=== PATIENT | female | born 1950 | race Caucasian/White ===

== ENCOUNTER 2019-10-21 06:50 | Day surgery (SDC) | payer MEDICARE, OTHER ==
[~2019-10-21] VITALS: Ht 160 cm; Wt 72.6 kg
[~2019-10-21 06:50] MED LIST: FOSAMAX70 MG PO; LEVOTHYROXINE25 MCG PO; LIPITOR20 MG PO; METOPROLOL SUC200 MG PO; METOPROLOL TART50 MG PO; OMEPRAZOLE20 MG PO; ZOLOFT100 MG PO
[2019-10-21] MEDS ORDERED: HYDROCODON-ACE1 EA10 PO (08:50)
--- NOTE | 2019-10-21 09:14 | NUR ---
10/21/19 0914 Hermelinda Hardin 0853- PT ARRIVES TO PACU EASILY AROUSABLE TO VOICE. INSTANTLY FALLS TO SLEEP WHEN NOT BEING TALKED TO. RESP EVEN AND UNLABORED. OXYGEN SAT HIGH 90'S TO 100% ON 6L VIA MASK. 0857- PT NEEDING REMINDERS TO COUGH AND DEEP BREATHE. PT IS ABLE TO FOLLOW THESE COMMANDS. 0908- OXYGEN TITRATED OFF. 0912- PT IS MORE AROUSABLE. PT SAT UP IN BED AND GIVEN ICE WATER TO DRINK PER HER REQUEST. TOLERATING WELL. PT RIGHT HAND HAS AN ICE PACK TO IT.
--- NOTE | 2019-10-21 10:30 | OR ---
[facility] [address] [place], [place] [address] Signed DATE OF OPERATION: 10/21/2019 SURGEON: Berto Rand MD PREOPERATIVE DIAGNOSIS: Right ring trigger finger. POSTOPERATIVE DIAGNOSIS: Right ring trigger finger. PROCEDURE PERFORMED: Right ring trigger finger release. HAND SALTER: None. ANESTHESIA: [place] block. TOURNIQUET TIME: 20 minutes. BRIEF HISTORY: Rocio is a 68-year-old female with locking in her ring finger. It was uncomfortable. Risks and benefits of operative treatment were discussed with her versus injection. She elected to proceed with surgery. Once consent was obtained, she was taken to the operating room. After adequate anesthesia, she was placed on the operating room table. All downside pressure points were well padded. The right arm was prepped and draped in a standard sterile fashion. A 1 cm incision was made in the distal palmar crease, carried through skin and subcutaneous tissue. There were multiple fibrotic nodules consistent with early Dupuytren's in the region. These were transected to allow visualization of the tendon sheath. The sheath was then dissected free of overlying soft tissue. The A1 oniel was identified and under loupe magnification it was transected using the tenotomy scissors. The tendon was fully released. The patient was asked to move her hand. She was able to move her finger, full flexion and full extension with no locking or triggering. The wound was copiously irrigated and closed with 3-0 nylon. It was injected with 2 mL of 0.25% plain Marcaine and dressed with bacitracin, Adaptic, 4 x 8s, and gauze. She tolerated the procedure well. All sponge, needle, and instrument counts were correct. Electronically Signed By: BERTO RAND MD 10/21/19 1030 PATIENT NAME: ROCIO LUIS OPERATIVE REPORT DATE OF : 48 REPORT #: [id number] PHYSICIAN: BERTO RAND MD PCP: MARIJA MORENO MD REPORT IS CONFIDENTIAL AND NOT TO BE RELEASED WITHOUT AUTHORIZATION [address] [address] Signed Berto Rand MD BA/MALLYL /[id number] Copies: ~ Electronically Signed By: BERTO RAND MD 10/21/19 1030 PATIENT NAME: ROCIO LUIS OPERATIVE REPORT DATE OF : 48 REPORT #: [id number] PHYSICIAN: BERTO RAND MD PCP: MORENO, MARIJA YOLAND MD REPORT IS CONFIDENTIAL AND NOT TO BE RELEASED WITHOUT AUTHORIZATION
== END 2019-10-21 09:50 | disposition home or self-care (01) ==
LOC: OPS 06:50 → DS 06:50 → OPS 08:00
PROVIDERS: Specialist
PROC: 0LN70ZZ Release Right Hand Tendon, Open Approach (ICD-10-PCS; principal; 2019-10-21 08:00)
DX: M65.341 Trigger finger, right ring finger (principal); Z79.899 Other long term (current) drug therapy
CPT/HCPCS: 01810; J0690; J1100; J1885; J2250; J2405; J2704; J2765; J3010; J7121

== ENCOUNTER 2022-09-30 07:50 | Day surgery (SDC) | payer MEDICARE, OTHER ==
[~2022-09-30] VITALS: Ht 160 cm; Wt 77.8 kg
[~2022-09-30 07:50] MED LIST changes: +CALCIUM + D SO1 EACH PO; +CANDICIDAL CAP1 EACH PO; +HYDROCODON-ACE1 EA10 PO; +LEVOTHYROXINE25 MC1 PO; +PEPCID AC10 MG
--- NOTE | 2022-09-30 09:34 | NUR ---
09/30/22 0934 Digna Nieto 0998 PATIENT ARRIVES TO PACU AWAKE BUT DROWSY. DENIES PAIN OR NAUSEA. ANSWERS QUESTIONS APPROPRIATELY. SLEEP ING WHEN NOT STIMULATED. RESP EVEN AND UNLABORED, OXYGEN TURNED OFF ON ARRIVAL, ROOM AIR SATS >93%. PASSING GAS.
--- NOTE | 2022-10-01 07:02 | OR ---
[facility] [address] [place], [place] [address] Signed DATE OF OPERATION: 09/30/2022 SURGEON: Sharmila Bhagat MD PREOPERATIVE DIAGNOSES: 1. Sister with colon cancer age 53. 2. Brother with colon polyps late 60s. POSTOPERATIVE DIAGNOSES: 1. 4 mm polyp at 25 cm (sigmoid colon). 2. 3 mm polyp at 3 cm. 3. Minimal sigmoid diverticulosis. 4. Tortuous sigmoid colon. PROCEDURE: Colonoscopy with hot biopsy. ESTIMATED BLOOD LOSS: None. INDICATIONS: Rocio is a 71-year-old female, asked to see me for a followup colonoscopy. She has no lower GI complaints. We know her sister developed colon cancer at age 53. She from her colon cancer a few years later. Her brother also had colonic polyps removed in his late 60s. We know her father had of pancreatic cancer. Katheryn underwent a colonoscopy in 1998 at the age of 48. She cannot recall which physician helped her in that regard. It was done in [place], [place]. She recalls it was negative. I helped her with a colonoscopy in 2008 at the age of 58. This was negative. She did well with Versed and fentanyl. She came back in 2015 at the age of 65. Again, it was negative. She did well with Versed and fentanyl. We always asked her to return in 5 years. She returns now and told me by her brother having colonic polyps. In the office, I gave her a brochure on colonoscopy. She recalls the nature of the test. There is risk including, but not limited to gas bloating, crampy abdominal pain, bleeding, perforation requiring surgery, and missed diagnosis. We had reviewed the written instructions for the bowel prep line by line. She told me our bowel prep is the most gentle and she has been very happy with that prep. I reminded her of the need for IV conscious sedation. She said her daughter would take her home afterwards. PROCEDURE NOTE: Rocio was taken into our endoscopy suite and placed in the left lateral decubitus Electronically Signed By: SHARMILA BHAGAT MD 10/01/22 0702 PATIENT NAME: ROCIO LUIS OPERATIVE REPORT DATE OF : 48 REPORT #: [id number] PHYSICIAN: SHARMILA BHAGAT MD PCP: JORJE GARDUNO MD REPORT IS CONFIDENTIAL AND NOT TO BE RELEASED WITHOUT AUTHORIZATION [facility] [address] [place], [place] [address] Signed position. She was given 7 mg of Versed and 100 mcg of fentanyl to cover the case. A digital rectal exam was performed and this was unremarkable. There were no external hemorrhoids. She had good sphincter tone. There were no masses. The adult colonoscope was introduced and advanced up in the sigmoid colon. It took a few extra minutes with abdominal compression and extra sedation in order to advance the scope through the sigmoid colon. After that, we traveled up into the right colon. I continued to drag a little bit in the sigmoid colon. With a little extra back and forth with the camera and some sedation, we got into the cecum itself. We could easily see the appendiceal orifice and the ileocecal valve. Her prep was quite excellent. The scope was then slowly withdrawn. The above-mentioned polyps were easily removed with the help of hot biopsy forceps. We had seen just a couple of diverticula, so we went through the sigmoid colon. The scope had been retroflexed and we did not see any additional pathology above the anal canal. After this, the gas was suctioned out and the colonoscope removed. Rocio tolerated the procedure quite well. RECOMMENDATIONS: I will see Rocio back in my office in 7 to 14 days to review her results. It looks like she will be on the five year plan due to her family history. Sharmila Bhagat MD ALB/MODL /[id number] cc: MD Sharmila Mckeon MD Copies: SHARMILA BHAGAT MD ~ Electronically Signed By: SHARMILA BHAGAT MD 10/01/22 0702 PATIENT NAME: ROCIO LUIS OPERATIVE REPORT DATE OF : 48 REPORT #: [id number] PHYSICIAN: SHARMILA BHAGAT MD PCP: JORJE GARDUNO MD REPORT IS CONFIDENTIAL AND NOT TO BE RELEASED WITHOUT AUTHORIZATION
--- NOTE | 2022-10-02 15:53 | PATH ---
[facility] [address] [facility] [place], [place] [address] Signed SPECIMEN(S): A SIGMOID POLYP AT 25 CM SPECIMEN(S): B RECTAL POLYP AT 4 CM SPECIMEN SOURCE: A. SIGMOID POLYP AT 25 CM B. RECTAL POLYP AT 4 CM CLINICAL HISTORY: Surveillance. Diverticulosis, colon polyp, rectal polyp. FINAL PATHOLOGIC DIAGNOSIS: A. Sigmoid polyp at 25 cm: - Benign polypoid colonic mucosa, negative for pathologic inflammation or dysplasia. - [place] mucosal lymphoid aggregate. B. Rectal polyp at 4 cm: - Hyperplastic polyp (one fragment). JVR:[facility]:C2NR MICROSCOPIC EXAMINATION: Histologic sections of all submitted blocks are examined by light microscopy. These findings, together with the gross examination, support the pathologic diagnosis. GROSS DESCRIPTION: A. The specimen, labeled and designated "Mathieu, sigmoid colon polyp at 25 cm," is received in formalin and consists of one rushing soft tissue fragment, 0.2 cm. Entirely submitted in (A1). B. The specimen, labeled and designated "Mathieu, rectal polyp at 4 cm," is received in formalin and consists of one rushing soft tissue fragment, 0.2 cm. Entirely submitted in (B1). JS (under the direct supervision of a pathologist) The Gross Description was prepared using a voice recognition system. The report was reviewed for accuracy; however, sound-alike word errors, addition and/or deletions may occur. If there is any question about this report, please contact Client Services. PERFORMING LABORATORY: The technical component was performed by [facility], [address] [place] [id number] (CLIA# [id number]). Professional interpretation was performed by [facility] PATIENT NAME: ROCIO LUIS PATHOLOGY DATE OF : 48 REPORT #: [id number] PHYSICIAN: [facility] PATHOLOGY PCP: JORJE GARDUNO MD REPORT IS CONFIDENTIAL AND NOT TO BE RELEASED WITHOUT AUTHORIZATION [facility] [address] [place], [place] [address] Signed [address] [place] [address] (CLIA#: [id number]). Diagnostician: William Hooker MD Pathologist Electronically Signed 10/02/2022 Copies: ~ PATIENT NAME: ROCIO LUIS PATHOLOGY DATE OF : 48 REPORT #: [id number] PHYSICIAN: [facility] PATHOLOG[facility] PCP: JORJE GARDUNO MD REPORT IS CONFIDENTIAL AND NOT TO BE RELEASED WITHOUT AUTHORIZATION
== END 2022-09-30 10:15 | disposition home or self-care (01) ==
LOC: OPS 07:50 → DS 07:50 → OPS 09:00
PROVIDERS: ATTEND Colon & Rectal Surgery
PROC: 0D9K8ZX Drainage of Ascending Colon, Via Natural or Artificial Opening Endoscopic, Diagnostic (ICD-10-PCS; principal; 2022-09-30 09:00)
DX: Z12.11 Encounter for screening for malignant neoplasm of colon (principal); K63.5 Polyp of colon; K62.1 Rectal polyp; K57.30 Diverticulosis of large intestine without perforation or abscess without bleeding; K21.9 Gastro-esophageal reflux disease without esophagitis; E78.5 Hyperlipidemia, unspecified; E03.9 Hypothyroidism, unspecified; I10 Essential (primary) hypertension; F41.9 Anxiety disorder, unspecified; Z83.71 Family history of colonic polyps; Z80.0 Family history of malignant neoplasm of digestive organs
CPT/HCPCS: 99153; G0500; J2250; J3010; J7121

== ENCOUNTER 2025-02-14 11:49 | Emergency (ER) | payer MEDICARE, OTHER ==
[~2025-02-14] VITALS: Ht 160 cm; Wt 76.3 kg
[2025-02-14 12:06] LABS: BASOPHILS 0.7 % (0.1-1.2); EOSINOPHILS 0.9 % (0.7-5.8); HEMOGLOBIN 12.8 g/dL (11.2-15.7); LYMPHOCYTES 24.9 % (19.3-51.7); MCHC 32.8 g/dL (32.2-35.5); MCV 91.5 fL (79.4-94.8); MONOCYTES 6.4 % (4.7-12.5); PLATELET COUNT 216 K/uL (182-369); RBC 4.26 M/uL (3.93-5.22)
[2025-02-14 12:25] LABS: ALBUMIN 3.8 g/dL (3.4-5.0); ALBUMIN/GLOBULIN RATIO 1.15 (1.1-2.4); ALKALINE PHOSPHATASE 77 U/L (46-116); ALT (SGPT) 35 U/L (14-59); ANION GAP 14.8 (7-21); AST (SGOT) 24 U/L (15-37); BILIRUBIN, TOTAL 0.9 mg/dL (0.2-1.0); BUN/CREATININE RATIO 20.58 (6.0-28.6); CALCIUM 9.3 mg/dL (8.5-10.1); CARBON DIOXIDE 25 mmol/L (21-32); CHLORIDE 106 mmol/L (98-107); CREATININE, SERUM 1.02 mg/dL (0.55-1.02); GLOMERULAR FILTRATION RATE,EST 57 mL/min (>60); MAGNESIUM 2.3 mg/dL (1.8-2.4); POTASSIUM 3.8 mmol/L (3.5-5.1); PROTEIN, TOTAL 7.1 g/dL (6.4-8.2); UREA NITROGEN 21 mg/dL (7-18)
[2025-02-14 13:46] LABS: TSH, 3RD GENERATION 2.895 uIU/mL (0.358-3.740)
[2025-02-14 14:24] VITALS: BP 117/73
--- NOTE | 2025-02-15 19:08 | EKG ---
[facility] [address] [facility] [place] [address] Signed Sinus tachycardia with fusion complexes Possible Right ventricular hypertrophy Possible Inferior infarct , age undetermined Abnormal ECG Confirmed by Rudy Niño DO ([id number]) on 02/15/2025 7:07:56 PM Electronically Signed By: RUDY NIÑO DO 02/15/251907 PATIENT NAME: ROCIO LUIS KANDI Electrocardiogram DATE OF : 48 PHYSICIAN: RUDY NIÑO DO REPORT #: [id number] REPORT IS CONFIDENTIAL AND NOT TO BE RELEASED WITHOUT AUTHORIZATION
--- NOTE | 2025-02-15 19:08 | EKG ---
[facility] [address] [facility] [place] [address] Signed Normal sinus rhythm Normal ECG When compared with ECG of 14-FEB-2025 11:49, (Unconfirmed) fusion complexes are no longer present Vent. rate has decreased BY 57 BPM QRS axis shifted left Confirmed by Rudy Niño DO ([id number]) on 02/15/2025 7:08:13 PM Electronically Signed By: RUDY NIÑO DO 02/15/25 1908 PATIENT NAME: ROCIO LUIS KANDI Electrocardiogram DATE OF : 48 PHYSICIAN: RUDY NIÑO DO REPORT #: [id number] REPORT IS CONFIDENTIAL AND NOT TO BE RELEASED WITHOUT AUTHORIZATION
== END 2025-02-14 14:24 | disposition home or self-care (01) ==
LOC: ED 11:49
PROVIDERS: Emergency Medicine
DX: R00.0 Tachycardia, unspecified (principal); I48.91 Unspecified atrial fibrillation; Z88.5 Allergy status to narcotic agent
CPT/HCPCS: 36415; 71045; 80053; 83735; 84439; 84443; 84484; 85025; 93005; 93010; 99285-25